=== PATIENT | female | born 1985 | race Caucasian/White ===

== ENCOUNTER 2019-02-18 16:43 | Emergency (ER) | payer BC ==
[~2019-02-18] VITALS: Ht 157.5 cm; Wt 75.0 kg
[2019-02-18] MEDS ORDERED: NORCO 325 MG-51 TAB PO (18:32)
[2019-02-18] MEDS ORDERED: NORVASC 5MG5 MG/TAB PO (18:32)
[2019-02-18 19:05] VITALS: BP 155/103; PULSE 96; TEMP 98.5
== END 2019-02-18 19:05 | disposition home or self-care (01) ==
LOC: COL.ER 16:43
DX: S52.502A Unspecified fracture of the lower end of left radius, initial encounter for closed fracture (principal); I10 Essential (primary) hypertension; F41.8 Other specified anxiety disorders; F17.210 Nicotine dependence, cigarettes, uncomplicated; W17.89XA Other fall from one level to another, initial encounter
CPT/HCPCS: Q4050